=== PATIENT | male | born 1975 | race Caucasian/White ===

== ENCOUNTER 2016-10-25 21:28 | Emergency (ER) | payer BC, OTHER ==
--- NOTE | 2016-10-25 22:11 | EDM.PDOC ---
ED HPI GENERAL MEDICAL PROBLEM - General Chief Complaint: General Stated Complaint: CONGESTION/COUGH/SICK/EAR PAIN Time Seen by Provider: 10/25/16 21:52 - History of Present Illness INITIAL COMMENTS - FREE TEXT/NARRATIVE: HISTORY AND PHYSICAL: History of present illness: Patient 40-year-old white male that since her cough intermittently productive of blood-tinged phlegm and right ear pain has been for 3-4 days he denies shortness of breath nausea vomiting or other complaints Review of systems: As per history of present illness and below otherwise all systems reviewed and negative. Past medical history: As per history of present illness and as reviewed below otherwise noncontributory. Surgical history: As per history of present illness and as reviewed below otherwise noncontributory. Social history: No reported history of drug or alcohol abuse. Family history: As per history of present illness and as reviewed below otherwise noncontributory. Physical exam: HEENT: Atraumatic, normocephalic, pupils reactive, negative for conjunctival pallor or scleral icterus, mucous membranes moist, throat clear, neck supple, nontender, trachea midline. Right TM is injected with absent light reflex Lungs: Coarse breath sounds, breath sounds equal bilaterally, chest nontender. Heart: S1S2, regular, negative for clicks, rubs, or JVD. Abdomen: Soft, nondistended, nontender. Negative for masses or hepatosplenomegaly. Negative for costovertebral tenderness. Pelvis: Stable nontender. Genitourinary: Deferred. Rectal: Deferred. Extremities: Atraumatic, negative for cords or calf pain. Neurovascular unremarkable. Neuro: Awake, alert, oriented. Cranial nerves II through XII unremarkable. Cerebellum unremarkable. Motor and sensory unremarkable throughout. Exam nonfocal. Diagnostics: Influenza screen chest x-ray Therapeutics: None Impression: #1 tracheobronchitis #2 right otitis media Definitive disposition and diagnosis as appropriate pending reevaluation and review of above. right ear Pain Score (Numeric/FACES): 6 - Related Data Allergies Allergy/AdvReac Type Severity Reaction Status Date / Time No Known Allergies Allergy Verified 10/25/16 21:50 Home Meds: Home Meds . [No Known Home Meds] 10/25/16 [History] Past Medical History HEENT History: Reports: None Cardiovascular History: Reports: None Respiratory History: Reports: None Gastrointestinal History: Reports: None Genitourinary History: Reports: None Musculoskeletal History: Reports: None Neurological History: Reports: None Psychiatric History: Reports: None Endocrine/Metabolic History: Reports: None Hematologic History: Reports: None Oncologic (Cancer) History: Reports: None - Infectious Disease History Infectious Disease History: Reports: None - Past Surgical History Cardiovascular Surgical History: Reports: None GI Surgical History: Reports: None Male Surgical History: Reports: None Neurological Surgical History: Reports: None Social & Family History - Family History Family Medical History: Noncontributory - Tobacco Use Smoking Status *Q: Former Smoker - Recreational Drug Use Recreational Drug Use: No ED ROS GENERAL - Review of Systems Review Of Systems: ROS reveals no pertinent complaints other than HPI. ED EXAM, GENERAL - Physical Exam Exam: See Below (See dictation) Course - Vital Signs Last Recorded V/S: Last Vital Signs Temp 36.6 C 10/25/16 21:50 Pulse 95 10/25/16 21:50 Resp 20 10/25/16 21:50 BP 169/74 H 10/25/16 21:50 Pulse Ox 95 10/25/16 21:50 - Orders/Labs/Meds Orders: Active Orders 24 hr Category Date Time Status Chest 2V [CR] Stat Exams 10/25/16 22:07 Ordered INFLUENZA A+B AG SCREEN [RM] Stat Lab 10/25/16 22:07 Uncollected Departure - Departure Time of Disposition: 22:10 Disposition: Home, Self-Care 01 Condition: good Clinical Impression: Tracheobronchitis, Otitis media Forms: ED Department Discharge Additional Instructions: The following information is given to patients seen in the emergency department who are being discharged to home. This information is to outline your options for follow-up care. We provide all patients seen in our emergency department with a follow-up referral. The need for follow-up, as well as the timing and circumstances, are variable depending upon the specifics of your emergency department visit. If you don't have a primary care physician on staff, we will provide you with a referral. We always advise you to contact your personal physician following an emergency department visit to inform them of the circumstance of the visit and for follow-up with them and/or the need for any referrals to a consulting specialist. The emergency department will also refer you to a specialist when appropriate. This referral assures that you have the opportunity for followup care with a specialist. All of these measure are taken in an effort to provide you with optimal care, which includes your followup. Under all circumstances we always encourage you to contact your private physician who remains a resource for coordinating your care. When calling for followup care, please make the office aware that this follow-up is from your recent emergency room visit. If for any reason you are refused follow-up, please contact the [facility] emergency department at and asked to speak to the emergency department charge nurse. Augmentin hydrocodone albuterol as prescribed follow up primary medical doctor wanted to his return as needed as discussed - My Orders Last 24 Hours: My Active Orders 10/25/16 22:07 Chest 2V [CR] Stat INFLUENZA A+B AG SCREEN [RM] Stat - Assessment/Plan Last 24 Hours: My Active Orders 10/25/16 22:07 Chest 2V [CR] Stat INFLUENZA A+B AG SCREEN [RM] Stat
[2016-10-26 00:25] VITALS: BP 149/71
--- NOTE | 2016-10-27 18:15 | CR ---
EXAM DATE: 10/25/16 PATIENT'S AGE: 40 Patient: KATHLEEN BRYANT Facility: [place], [place] Site . Site : [id number] Study: XRay Chest [id number] 10:35:37 PM Ordering Physician: Sindi Silva Final Report: INDICATION: cough TECHNIQUE: Chest 2 views. COMPARISON: None. FINDINGS: Cardiovascular and mediastinum: Heart size and vasculature are normal in caliber and appearance. Mediastinum is within normal limits. Lungs and pleural spaces: Lungs are clear. No sign of infiltrate or mass. No sign of pleural effusion. No pneumothorax. Bones and soft tissues: No significant findings. IMPRESSION: Unremarkable chest. Dictated by: Adrian Pena MD @ 10/25/2016 23:00:26 (Electronic Signature) Report Signed by Proxy and Original Signed Document filed in the Medical Record. ETHEL
== END 2016-10-25 23:39 | disposition home or self-care (01) ==
LOC: MW.ED 21:28
DX: J40 Bronchitis, not specified as acute or chronic (principal); H66.91 Otitis media, unspecified, right ear; Z87.891 Personal history of nicotine dependence
CPT/HCPCS: 71020; 71020-26; 87804; 99283